=== PATIENT | male | born 1985 | race Caucasian/White ===

== ENCOUNTER 2016-12-14 08:16 | Emergency (ER) | payer OTHER ==
--- NOTE | 2016-12-14 09:26 | ED Physician Documentation ---
General Adult - HISTORIAN Historian: patient - HPI Stated Complaint: sore throat Chief Complaint: General Adult Onset: days ago Timing: still present Severity: moderate Further Comments: yes (Pt is a 31 yo male with a sore throat. Pt has been having sore throats for the past month. His sore throat seemed to be getting better, but then recurred. Pt has difficulty swallowing.) - ROS CONST: other (malaise) EYES/ENT: sore throat CVS/RESP: none GI/: none MS/SKIN/LYMPH: none - PAST HX Past History: other (appendectomy) Allergies/Adverse Reactions: Allergies Allergy/AdvReac Type Severity Reaction Status Date / Time Penicillins Allergy Unknown Verified 12/14/16 08:42 - SOCIAL HX Smoking History: cigarettes - FAMILY HX Family History: No - VITAL SIGNS Vital Signs: Vital Signs Temp Pulse Resp BP Pulse Ox 97.9 F 107 H 18 120/73 99 12/14/16 08:16 12/14/16 08:16 12/14/16 08:16 12/14/16 08:16 12/14/16 08:16 - REVIEWED ASSESSMENTS Nursing Assessment Reviewed: Yes Vitals Reviewed: Yes Progress - Progress Progress: Rapid Strep - pos Solu-medrol 125 mg IV Rocephin 1 gm IV Rx Keflex 500 mg po tid x 10 days. Rx Prednisone 50 mg po qd x next 4 days. ED Results Lab/Radiology - Orders Orders: ED Orders Category Date Time Status CBC/PLATELET/DIFF Routine Lab 12/14/16 09:15 Received CMP Routine Lab 12/14/16 09:14 Received MONOTEST Stat Lab 12/14/16 09:15 Received Rapid Strep [GRP A STREP SCREEN] Stat Lab 12/14/16 09:15 Received THROAT CULTURE Stat Lab 12/14/16 09:16 Received General Adult Physical Exam - PHYSICAL EXAM GENERAL APPEARANCE: mild distress EENT: eye inspection normal, pharyngeal erythema, exudate NECK: normal inspection, supple, lymphadenopathy RESPIRATORY: no resp distress, chest non-tender, breath sounds normal CVS: reg rate & rhythm, heart sounds normal BACK: normal inspection SKIN: warm/dry, normal color EXTREMITIES: non-tender, normal range of motion, no evidence of injury NEURO: oriented X3, motor nml, sensation nml Discharge Clincal Impression: Strep pharyngitis Referrals: Primary Doctor,No [Primary Care Provider] - Condition: Good Disposition: 01 HOME, SELF-CARE Decision to Admit: NO Decision Time: 09:55
[2016-12-14 09:32] LABS: BASOPHILS % 0.4 (0.0-1.5); EOSINOPHILS % 1.8 % (0.0-6.8); MEAN CORPUSCULAR VOLUME 89.1 fl (80.0-100.0); MONOCYTES % 6.8 % (0.0-11.0); NEUTROPHILS # 8.8 # k/uL (1.4-7.7)
[2016-12-14] MEDS ORDERED: methylPREDNISolone SOD SUCC 125 MG/2 ML VIAL IVP ONE (09:37)
[2016-12-14 09:43] LABS: eGFR (African) > 60; eGFR (Non-African) > 60
[2016-12-14] MEDS ORDERED: cefTRIAXone SODIUM ADVANTAGE 1 GM VIAL.PORT IV ONE (09:51)
[2016-12-14] MEDS ORDERED: 0.9 % SODIUM CHLORIDE 100 ML IV ONE (09:53)
[2016-12-14] MEDS ORDERED: cefTRIAXone SODIUM 1 GM in 0.9 % SODIUM CHLORIDE 50 ML IV SCH (10:00)
[2016-12-14 11:30] VITALS: BP 120/80
== END 2016-12-14 10:55 | disposition home or self-care (01) ==
LOC: ED 08:16
DX: J02.0 Streptococcal pharyngitis (principal); F17.210 Nicotine dependence, cigarettes, uncomplicated
CPT/HCPCS: 80053; 85025; 86308; 87070; 87880; J0696; J2930; 99283; S1016